=== PATIENT | male | born 1985 | race Caucasian/White ===

== ENCOUNTER 2018-08-15 17:08 | Emergency (ER) | payer OTHER ==
[~2018-08-15] VITALS: Ht 175.3 cm; Wt 66.0 kg
[2018-08-15 17:10] VITALS: BP 12/72
[2018-08-15] MEDS ORDERED: IBUPROFEN 200 MG TABLET ONE (17:52)
[2018-08-15] MEDS ORDERED: IBUPROFEN 600 MG TABLET PO ONE (18:00)
--- NOTE | 2018-08-15 18:09 | NUR ---
RIGHT KNEE AMY WRAPPED. RIGHT KNEE IMMOBILIZER PLACED. CRUTCH USE DEMONSTRATION GIVEN TO PT.
== END 2018-08-15 18:11 | disposition home or self-care (01) ==
LOC: ED 17:55
DX: S83.251A Bucket-handle tear of lateral meniscus, current injury, right knee, initial encounter (principal); M25.461 Effusion, right knee; W01.0XXA Fall on same level from slipping, tripping and stumbling without subsequent striking against object, initial encounter; Y93.79 Activity, other specified sports and athletics; Y92.828 Other wilderness area as the place of occurrence of the external cause; Y99.8 Other external cause status
CPT/HCPCS: 29505; 99283